=== PATIENT | male | born 1985 | race African-American/Black ===

== ENCOUNTER 2016-05-28 10:58 | Emergency (ER) | payer SELFPAY ==
--- NOTE | 2016-05-28 11:29 | ER Document Report ---
ED Medical Screen (RME) - General Stated Complaint: BODY PAIN AND NAUSEA Time seen by provider: 11:26 Mode of Arrival: Ambulatory Information source: Patient Notes: 30-year-old male complaining of left testicle pain that started last night. The pain shoots up into his pelvis. No penis pain or discharge. Very vague about the symtpoms. No history of torsion Physical Exam - Vital signs Vitals: Temp Pulse Resp BP Pulse Ox 98.8 F 82 14 145/99 H 99 05/28/16 11:04 05/28/16 11:04 05/28/16 11:04 05/28/16 11:04 05/28/16 11:04 Course - Vital Signs Vital signs: Temp Pulse Resp BP Pulse Ox 98.8 F 82 14 145/99 H 99 05/28/16 11:04 05/28/16 11:04 05/28/16 11:04 05/28/16 11:04 05/28/16 11:04
[2016-05-28] MEDS ORDERED: IBUPROFEN 800 MG TABLET PO ONE (11:31)
--- NOTE | 2016-05-28 12:07 | ER Document Report ---
ED GI/ - General Chief Complaint: Testicular Pain Stated Complaint: BODY PAIN AND NAUSEA Time seen by provider: 12:03 Mode of Arrival: Ambulatory Information source: Patient TRAVEL OUTSIDE OF THE [place] IN LAST 30 DAYS: No - HPI Patient complains to provider of: Testicular pain - Pt. with onset of L testicular pain starting last pm -- has had similar pains in the past but they resolved spontaneously. This one has continued into today. He has had some nausea with this. Past Medical History - General Information source: Patient - Social History Smoking Status: Former Smoker Cigarette use (# per day): No Chew tobacco use (# tins/day): No Smoking Education Provided: No Family History: None Renal/ Medical History: Denies: Hx Peritoneal Dialysis Review of Systems - Review of Systems Constitutional: No symptoms reported EENT: No symptoms reported Cardiovascular: No symptoms reported Respiratory: No symptoms reported Male Genitourinary: See HPI, Testicular pain Musculoskeletal: No symptoms reported Neurological/Psychological: No symptoms reported Physical Exam - Vital signs Vitals: Temp Pulse Resp BP Pulse Ox 98.8 F 82 14 145/99 H 99 05/28/16 11:04 05/28/16 11:04 05/28/16 11:04 05/28/16 11:04 05/28/16 11:04 - General General appearance: Appears well In distress: None - Respiratory Respiratory status: No respiratory distress Breath sounds: Normal - Cardiovascular Rhythm: Regular Heart sounds: Normal auscultation - Abdominal Inspection: Normal Tenderness: Nontender - Genitourinary Tenderness: Other - there is min TTP of the L testicle diffusely without significant swelling. Course - Vital Signs Vital signs: Temp Pulse Resp BP Pulse Ox 98.8 F 82 14 145/99 H 99 05/28/16 11:26 05/28/16 11:26 05/28/16 11:26 05/28/16 11:26 05/28/16 11:26 - Laboratory Laboratory results interpreted by me: 05/28/16 12:05 Urine Urobilinogen 2.0 H - Diagnostic Test Radiology reviewed: Reports reviewed - L sided varicocele Discharge - Discharge Clinical Impression: Varicocele present on ultrasound of scrotum Condition: Stable Disposition: HOME, SELF-CARE Additional Instructions: rest, tylenol/motrin for pain, return if worse Referrals: TIFFANY SLOAN MD [ACTIVE STAFF] - Follow up as needed
[2016-05-28 12:31] LABS: APPEARANCE,URINE CLEAR; BILIRUBIN,URINE NEGATIVE (NEGATIVE); GLUCOSE, URINE NEGATIVE (NEGATIVE); KETONES,URINE NEGATIVE (NEGATIVE); LEUKOCYTE ESTERASE,URINE NEGATIVE (NEGATIVE); NITRITE,URINE NEGATIVE (NEGATIVE); PROTEIN,URINE NEGATIVE (NEGATIVE); URINE SPECIFIC GRAVITY 1.014
[2016-05-28 13:17] VITALS: BP 141/81
== END 2016-05-28 13:18 | disposition home or self-care (01) ==
LOC: ER 10:58
DX: I86.1 Scrotal varices (principal); N50.812 Left testicular pain; R11.0 Nausea; Z87.891 Personal history of nicotine dependence
CPT/HCPCS: 76870; 81001; 93976; 99284